=== PATIENT | male | born 1970 | race African-American/Black ===

== ENCOUNTER 2021-12-01 16:43 | Emergency (ER) | payer OTHER ==
[~2021-12-01] VITALS: Ht 200.7 cm; Wt 86.2 kg
[2021-12-01] MEDS ORDERED: ONDANSETRON ODT 4 MG TAB.RAPDIS ONE (17:00)
[2021-12-01] MEDS ORDERED: ONDANSETRON ODT 4 MG TAB.RAPDIS SL ONE (17:00)
[2021-12-01] MEDS ORDERED: MORPHINE SULFATE 4 MG/1 ML DISP.SYRIN IM ONE (17:00)
[2021-12-01] MEDS ORDERED: MORPHINE SULFATE 4 MG/1 ML DISP.SYRIN ONE (17:00)
[2021-12-01] MEDS ORDERED: HYDR-4209 PO (17:20)
[2021-12-01] MEDS ORDERED: METH4TAB3 PO (17:20)
[2021-12-01] MEDS ORDERED: NAPR-1009 PO (17:20)
--- NOTE | 2021-12-01 17:28 | NUR ---
PT WAS EVALUATED BY DR LUNSFORD. PT WAS D/C'd TO HOME. D/C I NSTRUCTIONS GIVEN TO THE PT BY DR LUNSFORD.
[2021-12-01 17:32] VITALS: BP 132/76
== END 2021-12-01 17:53 | disposition home or self-care (01) ==
LOC: ER 16:46
DX: M25.511 Pain in right shoulder (principal)
CPT/HCPCS: 99284; 73030; 96372; J2270; A4663; Q0162

== ENCOUNTER 2022-07-07 13:48 | Emergency (ER) | payer MEDICAID, OTHER ==
[~2022-07-07] VITALS: Ht 203.2 cm; Wt 72.6 kg
[~2022-07-07 13:48] MED LIST: HYDR-4209 PO; METH4TAB3 PO; NAPR-1009 PO
[2022-07-07] MEDS ORDERED: OXYC-875 (14:00)
[2022-07-07] MEDS ORDERED: TRAM50TA2 MT (14:00)
[2022-07-07] MEDS ORDERED: IV NORMAL SALINE 1000 ML BAG IV ONE ×2 (14:15→15:30)
[2022-07-07] MEDS ORDERED: FAMOTIDINE. 20 MG/2 ML VIAL IV ONE ×2 (14:15→14:18)
[2022-07-07] MEDS ORDERED: ONDANSETRON 4 MG/2 ML VIAL IV ONE (14:15)
[2022-07-07] MEDS ORDERED: ONDANSETRON 4 MG/2 ML VIAL ONE (14:18)
--- NOTE | 2022-07-07 14:45 | NUR ---
Patient is requesting pain medication for crampy, abdominal pain. MD notified.
[2022-07-07] MEDS ORDERED: MORPHINE SULFATE 4 MG/1 ML DISP.SYRIN IV ONE (15:00)
[2022-07-07 15:06] LABS: HEMATOCRIT 42.7 % (36.7-47.1); MEAN CORPUSCULAR HEMOGLOBIN 28.7 uug (23.8-33.4); MEAN CORPUSCULAR VOLUME 89.5 fL (73.0-96.2); PLATELET COUNT (AUTO) 245 K/uL (152-348)
[2022-07-07] MEDS ORDERED: MORPHINE SULFATE 4 MG/1 ML DISP.SYRIN ONE (15:06)
[2022-07-07 15:21] LABS: BILIRUBIN,DIRECT 0.1 mg/dL (0.0-0.2); BILIRUBIN,TOTAL 0.6 mg/dL (0.2-1.0); CREATININE 0.8 mg/dL (0.6-1.3); POTASSIUM 3.7 mmol/L (3.5-5.1); TOTAL PROTEIN, SERUM 6.9 g/dL (6.4-8.2)
[2022-07-07] MEDS ORDERED: IOHEXOL 300MG/ML 100 ML INFUS..BTL ONE (15:36)
[2022-07-07] MEDS ORDERED: SWABABLE VALVE TRANSFER SET EA MC ONE (15:36)
[2022-07-07] MEDS ORDERED: IV NORMAL SALINE 250 ML IV ONE (15:37)
--- NOTE | 2022-07-07 16:23 | NUR ---
Patient taken to CT scan.
--- NOTE | 2022-07-07 16:37 | NUR ---
Patient back from CT scan.
--- NOTE | 2022-07-07 17:30 | NUR ---
Patient given one cup of juice.
--- NOTE | 2022-07-07 17:38 | NUR ---
Patient given crackers.
[2022-07-07] MEDS ORDERED: ONDA4TAB11 PO (17:52)
[2022-07-07] MEDS ORDERED: FAMO-132 PO (17:52)
--- NOTE | 2022-07-07 18:18 | NUR ---
Patient tolerate PO intake without complaints of nausea/ vomiting.
--- NOTE | 2022-07-07 18:20 | NUR ---
Patient discharged to home in stable condition. Written and verbal after care instructions given. Patient verbalizes understanding of instructions. IV removed. Stressed follow up or return to ER for worsening s/s.
[2022-07-07 18:48] VITALS: BP 125/72
== END 2022-07-07 18:45 | disposition home or self-care (01) ==
LOC: ER 13:48
DX: R11.2 Nausea with vomiting, unspecified (principal); E86.0 Dehydration; R55 Syncope and collapse; Z79.899 Other long term (current) drug therapy
CPT/HCPCS: 99285; 96374; 74170; 96361; 96375; 80076; 80048; 83690; 85025; 36415; 93005; J3490; J2405; Q9967; J2270; J7040 ×2; A4663